=== PATIENT | male | born 2000 | race Caucasian/White ===

== ENCOUNTER 2024-02-08 11:26 | Emergency (ER) | payer OTHER ==
[~2024-02-08] VITALS: Ht 167.6 cm; Wt 118.0 kg
[2024-02-08 11:29] VITALS: TEMP 98.6; O2SAT 98
[2024-02-08 11:46] VITALS: BP 141/90; PULSE 90; RESP 16
[2024-02-08] MEDS: HYDROCODONE/ACETAMINOPHEN 5/325MG TABLET PO STA (11:46)
[2024-02-08] MEDS: BACITRACIN ZINC OINT UDPKT TOP ONE (12:00)
[2024-02-08 12:30] LABS: ALANINE AMINOTRANSFERASE 12 IU/L (10-49); ALBUMIN 4.7 g/dL (3.2-4.8); ASPARTATE AMINOTRANSFERASE 18 IU/L (<34); BILIRUBIN TOTAL 0.7 mg/dL (0.1-1.0); CALCIUM 9.2 mg/dL (8.7-10.4); CARBON DIOXIDE 26 mEq/L (21-32); CHLORIDE 107 mEq/L (98-107); CREATININE 0.9 mg/dL (0.6-1.3); GLUCOSE 101 mg/dL (70-105); POTASSIUM 4.5 mEq/L (3.5-5.1); SODIUM 139 mEq/L (136-145); UREA NITROGEN BLOOD 6 mg/dL (9-23)
[2024-02-08 12:34] LABS: BASOPHILS % 0.4 % (0.0-2.0); EOSINOPHILS % 1.4 % (0.0-5.0); HEMATOCRIT. 49.5 % (42.0-52.0); HEMOGLOBIN. 16.8 g/dL (14.0-18.0); MEAN CORPUSCULAR HGB CONC 33.9 g/dL (31.0-37.0); MEAN CORPUSCULAR VOLUME 88.4 fL (80.0-94.0); MEAN PLATELET VOLUME 8.5 fl (7.4-10.4); MONOCYTES % 5.2 % (2.0-8.0); PLATELET 208 x1000/uL (130-400); RED BLOOD CELL COUNT 5.59 mill/uL (4.7-6.1); RED CELL DISTRIBUTION WIDTH 13.3 % (11.6-14.6); WHITE BLOOD COUNT 9.6 x1000/uL (4.5-11.0)
[2024-02-08] MEDS: TETANUS, DIPHTHERIA, PERTUSSIS VAC/PF 0.5ML (>10YR OLD) IM ONE (12:34)
[2024-02-08] MEDS ORDERED: IOHEXOL-300 100 ML BOTTLE ONE (13:58)
[2024-02-08] MEDS: ACETAMINOPHEN 325MG TABLET PO STA (14:00)
[2024-02-08] MEDS ORDERED: LIDOCAINE HCL/EPINEPHRINE 1%-EPI 1:100,000 20 ML VIAL INFIL ONE (14:45)
[2024-02-08] MEDS: LIDOCAINE HCL/EPINEPHRINE 1%-EPI 1:100,000 20 ML VIAL INFIL NR (15:30)
[2024-02-08] MEDS ORDERED: BO1 TP (16:02)
[2024-02-08] MEDS ORDERED: CEPH500T MT (16:02)
[2024-02-08] MEDS ORDERED: HYDR-4001 MT (16:02)
[2024-02-08] MEDS ORDERED: NAPR-681 PO (16:02)
== END 2024-02-08 16:03 | disposition home or self-care (01) ==
LOC: ER 11:26
DX: S51.012A Laceration without foreign body of left elbow, initial encounter (principal); S40.812A Abrasion of left upper arm, initial encounter; S70.312A Abrasion, left thigh, initial encounter; M79.602 Pain in left arm; V49.49XA Driver injured in collision with other motor vehicles in traffic accident, initial encounter; Y93.89 Activity, other specified; Y92.89 Other specified places as the place of occurrence of the external cause; Y99.8 Other external cause status
CPT/HCPCS: 80053; 85025; 36415; 73552; 73060; 73090; 73130; 73590; 73610; 70450; 71260; 72125; 74177; 90715; 12002; 90471; 99285; Q9967; J3490; Z7610 ×2